=== PATIENT | female | born 1940 | race Caucasian/White ===

== ENCOUNTER 2016-04-21 13:07 | Emergency (ER) | payer MEDICARE ==
[~2016-04-21] VITALS: Ht 162.6 cm; Wt 95.6 kg
[~2016-04-21 13:07] MED LIST: AMLO-121 PO; ASPI-973 PO; CARV25TA2 PO; CLOP75TA3 PO; SIMV40TA5 PO
[2016-04-21 13:13] VITALS: BP 174/97; PULSE 66; RESP 18; O2SAT 99
== END 2016-04-21 16:35 | disposition left against medical advice (07) ==
LOC: SED 13:07
DX: Z53.21 Procedure and treatment not carried out due to patient leaving prior to being seen by health care provider (principal)